=== PATIENT | female | born 1965 | race Caucasian/White ===

== ENCOUNTER 2016-12-10 11:25 | Observation (INO) | payer BC ==
--- NOTE | ~2016-12-10 | EKG ---
PATIENT: TAWANA MCCORD UNIT #: [id number] Ventricular Rate: 57 BPM Atrial Rate: 57 BPM P-R Interval: 164 ms QRS Duration: 80 ms Q-T Interval: 450 ms QTC Calculation(Bezet): 438 ms P Olancha: 30 degrees Calculated R Olancha: -5 degrees Calculated T Olancha: 31 degrees Diagnosis Line: Sinus bradycardia Diagnosis Line: Possible Inferior infarct (cited on or before Diagnosis Line: 10-DEC-2016) Diagnosis Line: Cannot rule out Anterior infarct (cited on or Diagnosis Line: before 10-DEC-2016) Diagnosis Line: Abnormal ECG Diagnosis Line: When compared with ECG of 17-MAR-2015 16:33, Diagnosis Line: No significant change was found Diagnosis Line: Confirmed by SARABJIT MADRIGAL MD ([id number]) on Diagnosis Line: 12/12/2016 3:16:22 PM INTERPRETING MD: KAITLIN ESPINOZA
--- NOTE | ~2016-12-10 | TH ---
Unit #: [id number] #: [id number] Patient: TAWANA MCCORD [id number] [facility]. [place] [address] [id number] MR#: [id number] NAME: TAWANA MCCORD. : 1965 SEX: F STUDY DATE/TIME: UNIT: C5B ROOM: 558 STUDY DESCRIPTION: Nuclear Study Attending Physician: Regine Delacruz M.D. Primary Care Physician: Carson Valdez A.P.R.N. CARDIOLOGY REPORT EXAM Walking Lexiscan Cardiolite Stress Test - Nuclear Portion PROCEDURE Using technetium 99m labeled Cardiolite, rest and stress SPECT images were obtained. Multiple SPECT images were obtained in various views including horizontal and vertical long axis and short axis views of the left ventricle. Images were obtained by gated SPECT method. The patient was administered 11.58 mCi of Cardiolite at rest. The patient was administered 35.9 mCi of Cardiolite after Lexiscan infusion was completed. On the stress images, there is normal perfusion noted. The rest images show normal perfusion. Comparing rest and stress images, there is no stress-induced ischemia noted. The left ventricular ejection fraction is calculated to be 63%. There is no focal wall motion abnormality seen. CONCLUSION 1. No obvious stress-induced ischemia noted. 2. The left ventricular ejection fraction is calculated to be 63%. 3. There is no focal wall motion abnormality seen. 4. Normal Lexiscan Cardiolite stress test. 5. Technically limited study due to patient's body habitus. Clinical correlation is requested. Dictated by... Kristopher Thomason TD: 12/11/2016 13:11 JOB #: [id number] Unit #: [id number] #: [id number] Patient: TAWANA MCCORD CARDIOLOGY REPORT Page 1 of 1 X Regine Delacruz MD <ELECTRONICALLY SIGNED> 02/03/17 6997 CARDIOLOGY REPORT
--- NOTE | ~2016-12-10 | DS ---
Unit #: [id number] #: [id number] Patient: TAWANA DANIELSON [id number] [place] [id number] [facility]. [place], [place] [address] [id number] MR#: [id number] NAME: TAWANA DANIELSON. ROOM: 558 Age: 51 Sex: F Admission Date: 12/10/2016 : 1965 Discharge Date: 12/11/2016 Attending Physician: Regine Delacruz M.D. Primary Care Physician: Carson Valdez A.P.R.N. DISCHARGE SUMMARY SHORT STAY SUMMARY HISTORY OF PRESENT ILLNESS This is a 51-year-old white female who has had a history of having angioplasty and stent placed back originally in 2010 in the mid LAD and later in 2012 he had a non-STEMI and required another stent in the proximal LAD that was performed by Dr. Cevallos here at [facility]. Since that time, patient only had one followup with Dr. Cevallos and has not seen a ring striker since that time. She has a history of hypertension, diabetes mellitus, with neuropathy, hyperlipidemia, COPD, asthma, obstructive sleep apnea. Her last echo four years ago showed LVEF of 70%. No valvular disease. The patient came to the emergency room today with complaints of chest pain along with some left arm numbness and tightness that started a couple of days prior to coming to the ER. 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 She sat down for about 15 minutes and symptoms resolved. She continued to work and did fine the rest of that evening. The day before admission, she had another spell. This was at home after she had been doing some housecleaning and vacuuming. This time, she had some pain in her left anterior chest wall and also somewhat in the left arm that felt like her whole arm was numb. She then had developed some numbness and tingling in the right hand. She continued to feel lightheaded and dizzy. She did have a blood pressure cuff and took her blood pressure. It was 137/78. She occasionally feels her heart fluttering. She has been told in the past that she has a slow heart rate and one time she thought she may need a pacemaker but it was not necessary a few years back. She denies any increased shortness of breath. Denies any recent cough, fever or chills. Denies syncope with these episodes. She has not had any paroxysmal nocturnal dyspnea or orthopnea. In the emergency room, the patient's blood pressure was 189/73. Her heart rate is 60, respirations 16, temperature 97.7, O2 sat was 98% on room air. Her EKG showed sinus bradycardia with ventricular rate 57 beats/minute, T wave inversion in inferior leads and possible Q waves in inferior leads. The patient was given some aspirin 325 along with Zofran and morphine and sublingual Nitrostat before the morphine. The patient was admitted for further evaluation and management. The patient's cardiac enzymes remain negative. Her EKG did not show anything acute. The patient was sleeping she did have a slow bradycardia with a rate as low as 35 beats/minute. The patient was asymptomatic. The patient does have sleep apnea and she refused to use a CPAP here at the Unit #: [id number] #: [id number] Patient: [facility], only wanted to wear oxygen with sleep. Since that slow heart rate, she has remained in sinus bradycardia but rates are mostly in the 50s and low 60s. The patient is not on any beta richard which most likely was secondary because of her full heart rate. The patient was ordered for a walking Lexiscan if her heart rate would increase. A walking Lexiscan Cardiolite stress test was performed. Her heart rate got as high as the 80s. EKG did not show anything acute. Her blood pressure remained stable. Her nuclear images revealed no ischemia. Ejection fraction was 63%, no focal wall motion abnormality. The plan is for the patient to be discharged home and to have an event monitor placed. Our office will call the patient in the next couple of days to arrange for the event monitor. She also requested to see Dr. Delacruz in the office and that will be scheduled for a few weeks. Discussed with the patient to try to decrease the dose of Neurontin to see if that helps her symptoms. The patient agreed that she would try. The patient will be discharged home today in stable condition. No further complaints of chest pain, numbness or tingling or palpitations. PAST MEDICAL HISTORY 1. Hypertension. 2. Hyperlipidemia. 3. Diabetes mellitus type 2, insulin dependent. 4. Coronary artery disease. In 2010 had a PCI and stent to the mid LAD. 04/2013 - status post PCI and stent to the proximal LAD with 50% in-stent stenosis. Had a non-STEMI, follows Dr. Cevallos. 5. COPD/asthma. 6. Obstructive sleep apnea. 7. Gastroesophageal reflux disease. 8. History of TIA. 9. Obesity, 227 pounds. BMI 37. 10. 04/2013 2D echo. LVEF 70%. No valvular disease. 11. Nonsmoker. PAST SURGICAL HISTORY 1. Status post PCI and stent in 2010 in the mid LAD and later 2012 to the proximal LAD. 2. Cholecystectomy. 3. Cyst removed. 4. Tubal ligation. HOME MEDICATIONS 1. Lantus 30 units subcu twice daily. 2. NovoLog 70/30 25 units subcu twice daily. 3. Glucophage 500 mg p.o. twice daily. 4. Lisinopril 20 mg p.o. daily. 5. Aspirin 81 mg p.o. daily. 6. Neurontin 800 mg p.o. three times daily. 7. Plavix 75 mg p.o. daily. 8. Doxepin 50 mg p.o. at bedtime. 9. Lipitor 40 mg p.o. at bedtime. ALLERGIES Promethazine. SOCIAL HISTORY The patient lives with her spouse. 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 She works a lot of hours. She has been a lifelong nonsmoker, no alcohol or illicit drug abuse. FAMILY HISTORY No known cad in immediate family members. REVIEW OF SYSTEMS CONSTITUTIONAL: Denies fever or chills. No recent weight gain or weight loss. HEENT: Denies headache. Complains of some slight dizziness. No visual or hearing changes. No lymphadenopathy or thyromegaly, no difficulty swallowing. NECK: Trachea midline. CARDIAC: Chest pain present. Occasional palpitation present. Denies increased lower extremity edema. PULMONARY: Denies shortness of breath, denies paroxysmal nocturnal dyspnea or orthopnea. GI: Denies nausea, vomiting or diarrhea or abdominal pain. NEUROLOGICAL: No focal weakness. PHYSICAL EXAMINATION GENERAL: On exam, Ms. Danielson is a 51-year-old white female in no acute respiratory distress. She is awake, alert, oriented. VITAL SIGNS: Blood pressure is 145/75, heart rate is 56, respiratory rate 18, temperature 97.6. O2 sats 93% on room air. NECK: Trachea midline. No thyromegaly or lymphadenopathy. Normal carotid upstrokes. No jugular venous distention. HEART: S1, S2. Regular rate and rhythm. No clicks, murmurs or rubs. LUNGS: Slightly diminished, otherwise clear. ABDOMEN: Obese, soft, nontender. EXTREMITIES: Pedal pulses are palpable. No pedal edema. DIAGNOSTIC STUDIES LABORATORY: Glucose is 173, BUN 10, creatinine 0.7, eGFR 98.9. Sodium 138, potassium 3.9, chloride 105, CO2 28, calcium 8.9, total protein 6.8, albumin 3.6, bili total 0.7, AST 15, ALT 14, alkaline phos. 90. Fasting lipid profile - cholesterol is 206, triglycerides 300, LDL is 101, HDL is 45, TSH is 1.65. WBC is 8.1, hemoglobin 13.0, hematocrit 40.8, platelets 191. Initial cardiac enzymes - CK MB is 1.1 with troponin less than 0.05. CK MB is 1.0 with troponin less than 0.05. CK total is 38 with troponin of less than 0.03. WBC is 8.1, hemoglobin 13.0, hematocrit 40.8, platelets 191. INR is 1.0. IMAGING: Chest x-ray shows stable cardiomegaly, no active disease. CARDIOVASCULAR: EKG shows sinus bradycardia, heart rate 55 beats/minute. Some nonspecific ST-T wave abnormalities in inferior leads. Poor R wave progression and Q wave in lead III. Low voltage in AVF. PLAN/INSTRUCTIONS The patient will be discharged home and instructed to follow up with Dr. Delacruz. Our office will call the patient in the next couple of days with that appointment time. They will also instruct the patient on information Unit #: [id number] #: [id number] Patient: TAWANA DANIELSON about obtaining an event monitor to evaluate for any arrhythmias that would be causing her symptoms. I explained this to patient and she verbalizes understanding. The patient does take Neurontin 800 mg p.o. three times daily. Discussed with patient if maybe she can decrease down that dose which can maybe help her symptoms. The patient said she would try. Patient to continue on her aspirin and Plavix. She is also on an ALVA inhibitor. She is not on a beta richard because of her sinus bradycardia. I instructed the patient to follow up with her PCP in one to two weeks. Further recommendations pending per Dr. Delacruz. Dictated by... Иван Okeefe/huang TD: 12/11/2016 15:40 JOB #: [id number] DISCHARGE SUMMARY Page 1 of 1 X Torrie Sifuentes APRN X DISCHARGE SUMMARY
--- NOTE | ~2016-12-10 | CR72 ---
[facility] A Service of [facility] RADIOLOGY TEXT RESULTS PATIENT: TAWANA MCCORD LOCATION: CEDOF : [birth year] UNIT #: [id number] AGE: [address]: Regine Delacruz MD SEX: F ORDER DR: [id number] [facility] [place] [address] [facility]. [place], [place] [address] [id number] MR#: [id number] Acc #: [id number] NAME: TAWANA MCCORD. : 1965 SEX: F STUDY DATE/TIME: 12/10/2016 13:13 UNIT: [facility] ROOM: STUDY DESCRIPTION: CR Chest Single View Portable Attending Physician: Liya Farrar P.A.-C. Ordering Physician: Liya Farrar P.A.-C. Primary Care Physician: Carson Valdez A.P.R.N. MEDICAL IMAGING REPORT This report is preliminary unless electronic signature is present EXAM Portable chest 12/10/2016 INDICATION Chest pain with left arm numbness, shortness of air, nausea and vomiting. Symptoms started 2 days ago. FINDINGS AP portable chest compared with 05/09/2013. Cardiomegaly is stable. Lungs are clear. No pneumothorax is seen. IMPRESSION Stable cardiomegaly. No active disease. Dictated by... Benitez Thompson Jr., M.D. THIS IS AN ELECTRONICALLY VERIFIED REPORT Benitez Thompson Jr., M.D. at 12/10/2016 8:46 PM RAMIN/rustam TD: 12/10/2016 13:49 JOB #: [id number] MEDICAL IMAGING REPORT Page 1 of 1 COPY
--- NOTE | ~2016-12-10 | ST ---
Unit #: [id number] #: [id number] Patient: TAWANA MCCORD [id number] [place] [id number] [place], [place] [address] [id number] I MR#: [id number] NAME: TAWANA MCCORD. : 1965 SEX: F STUDY DATE/TIME: 12/11/2016 UNIT: C5B ROOM: 558 STUDY DESCRIPTION: Walking lexiscan stress test Attending Physician: Regine Delacruz M.D. Primary Care Physician: Carson Valdez A.P.R.N. CARDIOLOGY REPORT EXAM Walking Lexiscan Cardiolite stress test. DESCRIPTION Baseline EKG: Sinus bradycardia. Heart rate 55 BPM, some nonspecific ST-T wave abnormalities in inferior leads, poor R wave progression and possible Q wave in V1 only. Slightly prolonged QT. Lexiscan was done in 6 minutes utilizing Lauri protocol, achieving a maximum heart rate response of 97 BPM with a maximum blood pressure response of 190/91 mmHg. EKG during the test continued to show some nonspecific ST-T wave abnormalities in the inferior leads, especially lead 3 showed a T wave inversion, otherwise unremarkable. Patient had had no complaints of chest pain, palpitations. Did complain of some slight dizziness and fatigueness, which resolved during recovery phase. Cardiolite was injected after Lexiscan within the first minute of the test. Radionuclide test pending. Please correlate with nuclear images. Dictated by... Torrie Sifuentes A.P.R.N. for Kristopher Thomason/luis TD: 12/11/2016 09:52 JOB #: [id number] CARDIOLOGY REPORT Page 1 of 1 X Torrie Sifuentes APRN CARDIOLOGY REPORT
[~2016-12-10 11:25] MED LIST: ACETAMINOPHEN PO; ACULAR LS5 ML OP; ADVAIR 2501 DISK W/D; ADVAIR 500-501 EACH; ADVAIR 500-501 EACH IH; ADVAIR 5001 DISK W/D PO; ALBUTEROL 0.5ML; ALBUTEROL 0.5ML INH; ALBUTEROL SULFATE NEB; ALBUTEROL0.83 MG/ML IH; ALBUTEROL17 GM; ALBUTEROL17 GM INH; ALBUTEROL17 GM NEB; AMOXICILLIN500 M1 PO; ASPIRIN ENTERI325 M1 PO; ASPIRIN PO; ASPIRIN325 M1 PO; ASPIRIN81 M1 PO; ASPIRIN81 MG PO; ASPIRINEC; ASPIRINEC PO; AUGMENTIN; AURALGAN EAR DR14 ML OT; BENADRYL PO; CIPRO PO; COMBIVENT INH14.7 GM INH; COMBIVENT U/D3 ML INH; COREG6.25 MG PO; DARVOCET-N 1001 TAB PO; DIABETES MED; DOXYCYCLINE PO; EFFIENT10 MG; EFFIENT10 MG PO; EFFIENT5 MG PO; FAMOTIDINE PO; FLAGYL PO; FLEXERIL10 MG PO; FLONASE16 GM; FLOXIN OTIC5 M1 OP; GABAPENTIN600 MG PO; GLUCOPHAGE500 MG PO; HEART PILL; HUMIBID L.1 TAB.SR . PO; IBUPROFEN PO; IBUPROFEN800 MG PO; LEVAQUIN PO; LEVAQUIN750 MG PO; LEVEMIR100 U/ML SQ; LEVEMIR100 UNITS/; LEVEMIR100 UNITS/ SUBQ; LIDODERM30 EA TOP; LIPITOR; LISINOPRIL PO; LISINOPRIL10 MG PO; LISINOPRIL20 MG PO; LORTAB 5/500 TA1 TA2 PO; LORTAB 7.5-3251 EACH PO; LYRICA75 MG PO; MEDROL PO; MEDROL4 MG/DOSE- PO; MIDRIN CAPSULE1 CAP PO; MYCOSTATIN POWD30 GM EXT; NEURONTIN800 MG PO; NEXIUM PO; NITROGLYGERIN0.4 MG; NITROSTAT0.4 MG SL; NORCO1 TAB 10/3 PO; NORVASC PO; NOVOLOG100 U/M1 SQ; NOVOLOG100 U/M2 SUBQ; NOVOLOG100 UNITS/ INJ; NYSTATIN1 EACH MC; PERCOCET7.5; PHENERGAN25 MG PO; PLAVIX PO; PREDNISONE PO; PREDNISONE1 MG PO; PREDNISONE10 MG; PROTONIX PO; PULMICORT NEB; ROBAXIN 750750 M1 PO; ROBAXIN500 MG PO; SINGULAIR PO; SPIRIVA18 MCG INH; TYLENOL #3 PO; ULTRAM PO; VICODIN 5/500 T1 TAB; VOLTAREN50 MG PO; VOLTAREN75 MG PO; ZOCOR20 MG; ZOCOR20 MG PO; ZOFRAN ODT4 MG PO; ZOFRAN PO
[2016-12-10 13:31] LABS: BASOPHIL# 0.1 X10e3 (0-0.3); BASOPHIL% 0.7 % (0-2.5); EOSINOPHIL# 0.2 X10e3 (0-0.7); EOSINOPHIL% 2.6 % (0.0-7.0); HEMATOCRIT 40.8 % (35.0-45.0); LYMPHOCYTE# 2.5 X10e3 (1.0-3.5); LYMPHOCYTE% 30.2 % (17.0-45.0); MEAN CELL VOLUME 82.9 FL (83-96); MEAN CORPUSCULAR HEMOGLOBIN 26.5 PG (28-34); MEAN PLATELET VOLUME 10.2 FL (6.5-11.5); MONOCYTE# 0.6 X10e3 (0-1.0); MONOCYTE% 7.1 % (3.0-12.0); NEUTROPHIL# 4.8 X10e3 (1.5-7.1); NEUTROPHIL% 59.4 % (40-75); PLATELET COUNT 191 X10e3 (140-420); RED BLOOD COUNT 4.92 X10e (3.90-5.30); WHITE BLOOD COUNT 8.1 X10e3 (4.0-10.5)
[2016-12-10 13:35] LABS: DIFF IND NO
[2016-12-10 13:45] LABS: PARTIAL THROMBOPLASTIN TIME 24.4 SECONDS (23.5-31.3); PROTHROMBIN TIME (PATIENT) 10.1 SECONDS (9.6-11.5)
[2016-12-10 13:55] LABS: POC - TROPONIN <0.05 ng/mL (<=0.05)
[2016-12-10 13:56] LABS: ALBUMIN SERUM 3.6 g/dL (3.5-5.0); BILIRUBIN, DIRECT 0.1 mg/dL (0.0-0.2); BILIRUBIN,INDIRECT 0.6 mg/dL (0.0-0.9); BILIRUBIN,TOTAL 0.7 mg/dL (0.2-2.0); BUN/CREATININE RATIO 14.28; CALCIUM SERUM 8.9 mg/dL (8.4-10.2); CREATININE SERUM 0.7 mg/dL (0.6-1.4); GLOM FILT RATE Estimated 98.9 mL/min (>60); POTASSIUM 3.9 mmol/L (3.5-5.1); PROTEIN TOTAL SERUM 6.8 g/dL (6.0-8.3)
[2016-12-10 20:12] LABS: POC - CKMB 1.1 ng/mL (0.0-7.9); POC - TROPONIN <0.05 ng/mL (<=0.05)
[2016-12-10] MEDS ORDERED: LANTUS SOL100 UNIT/1 SUBQ (22:57)
[2016-12-10] MEDS ORDERED: METFORMIN PO (22:58)
[2016-12-10] MEDS ORDERED: NOVOLOG7030 SUBQ (22:58)
[2016-12-10] MEDS ORDERED: LISINOPRIL20 MG PO (23:02)
[2016-12-10] MEDS ORDERED: ASPIRIN81 MG PO (23:02)
[2016-12-10] MEDS ORDERED: NEURONTIN800 MG PO (23:02)
[2016-12-10] MEDS ORDERED: CLOPIDOGREL75 MG PO (23:03)
[2016-12-10] MEDS ORDERED: DOXEPIN HCL50 M1 PO (23:04)
[2016-12-10] MEDS ORDERED: LIPITOR PO (23:04)
[2016-12-10 23:57] LABS: CK TOTAL 48 IU/L (26-140)
[2016-12-11 03:13] LABS: CK TOTAL 38 IU/L (26-140)
[2016-12-11 03:20] LABS: CHOLESTEROL 206 mg/dL (0-200); HDL CHOLESTEROL 45 mg/dL (35-95); LDL CHOLESTEROL 101 mg/dL (-130); LDL/HDL RATIO 2 RATIO (0-4); TRIGLYCERIDES 300 mg/dL (10-160)
== END 2016-12-11 16:45 | disposition home or self-care (01) | DRG 313 ==
LOC: CED 11:25 → CEDOF 14:27 → CED 14:33 → CEDOF 14:33 → C5B 22:05 → CEDOF 22:05 → C5B 12-11 16:45
PROVIDERS: Internal Medicine Cardiovascular Disease; Physician Assistant
DX: R07.89 Other chest pain (principal); R00.1 Bradycardia, unspecified; I25.10 Atherosclerotic heart disease of native coronary artery without angina pectoris; Z95.5 Presence of coronary angioplasty implant and graft; I25.2 Old myocardial infarction; I10 Essential (primary) hypertension; E78.5 Hyperlipidemia, unspecified; E11.9 Type 2 diabetes mellitus without complications; Z79.4 Long term (current) use of insulin; J44.9 Chronic obstructive pulmonary disease, unspecified; G47.33 Obstructive sleep apnea (adult) (pediatric); K21.9 Gastro-esophageal reflux disease without esophagitis; Z86.73 Personal history of transient ischemic attack (TIA), and cerebral infarction without residual deficits; E66.9 Obesity, unspecified; Z68.37 Body mass index [BMI] 37.0-37.9, adult; Z79.84 Long term (current) use of oral hypoglycemic drugs; Z79.82 Long term (current) use of aspirin; Z79.02 Long term (current) use of antithrombotics/antiplatelets
CPT/HCPCS: 36415; 71010; 78452; 80048; 80061; 80076; 82550; 82553; 82947; 84443; 84484; 85025; 85610; 85730; 93005; 93017; 96372; 96374; 96375; 99285; A9500; G0378; J1650; J1815; J2270; J2405; J2785

== ENCOUNTER 2016-12-13 10:42 | Emergency (ER) | payer BC ==
--- NOTE | ~2016-12-13 | CT2 ---
[facility] A Service of [facility] RADIOLOGY TEXT RESULTS PATIENT: TAWANA MCCORD LOCATION: SED : 61 UNIT #: [id number] AGE: [address]: Michelle Meehan MD SEX: F ORDER DR: [id number] [address] [address] [id number] E MR#: [id number] Acc #: [id number] NAME: TAWANA MCCORD. : 1965 SEX: F STUDY DATE/TIME: 12/13/2016 13:20 UNIT: SED ROOM: STUDY DESCRIPTION: CT Abd and Pelv W Cont Attending Physician: Michelle Meehan M.D. Ordering Physician: Zach Hernandez M.D. Primary Care Physician: Carson Valdez A.P.R.N. MEDICAL IMAGING REPORT This report is preliminary unless electronic signature is present. EXAM CT abdomen and pelvis with contrast HISTORY 51-year-old female with dark emesis, fever, nausea, vomiting, diarrhea, epigastric pain since yesterday. History of COPD, diabetes. COMPARISON CT abdomen and pelvis, 01/03/2015 FINDINGS Axial images performed through the abdomen and pelvis following IV contrast. Multiplanar reconstructed images reviewed at a workstation. This CT exam was performed with one or more of the following radiation dose reduction techniques: automatic exposure control, adjustment of mA and/or kV according to patient size, and iterative reconstruction. Mild fatty infiltration of the liver. Spleen mildly enlarged but unchanged from prior studies. Gallbladder surgically absent. Pancreas, kidneys and adrenal glands appear normal. No free air or free fluid. Stomach demonstrates some positive opacity which may represent medicinal preparation or small amount of contrast. Small bowel unremarkable. Moderate amount of fluid within the colon but no evidence of bowel wall thickening. Findings could be seen with enterocolitis. Retroperitoneum unremarkable except for a few shotty retroperitoneal lymph nodes. PELVIS: Uterus demonstrates a fundal mass measuring up to 6.4 cm. This is compatible with a uterine fibroid. This shows some dense calcifications. Probable second fibroid within the posterior myometrium representing a mural fibroid. No adnexal masses identified. Tubal ligation clips noted. Osseous structures unremarkable. Generalized STS. [facility] A Service of [facility] RADIOLOGY TEXT RESULTS PATIENT: TAWANA MCCORD LOCATION: SED : 61 UNIT #: [id number] AGE: [address]: Michelle Meehan MD SEX: F ORDER DR: obesity. Apparent purse noted along the right anterior abdomen does create some artifact. IMPRESSION 1. Increased colonic fluid with a few colonic air-fluid levels nonspecific but could be seen with enterocolitis. No focal inflammatory process identified. 2. Fatty liver with mild splenomegaly. 3. At least two sizeable uterine mass lesions compatible with fibroids. The largest measuring up to 6.4 cm representing an exophytic fundal leiomyoma. Dictated by... Armando Guzman M.D. THIS IS AN ELECTRONICALLY VERIFIED REPORT Armando Guzman M.D. at 12/15/2016 5:11 PM EMILIANO/dafne TD: 12/13/2016 17:59 JOB #: [id number] MEDICAL IMAGING REPORT Page 1 of 1
[~2016-12-13 10:42] MED LIST changes: +CLOPIDOGREL75 MG PO; +DOXEPIN HCL50 M1 PO; +LANTUS SOL100 UNIT/1 SUBQ; +LIPITOR PO; +METFORMIN PO; +NOVOLOG7030 SUBQ
[2016-12-13 11:59] LABS: URINE SOURCE CLEAN CATCH
[2016-12-13 12:00] LABS: BASOPHIL# 0.1 X10e3 (0-0.3); BASOPHIL% 0.4 % (0-2.5); EOSINOPHIL# 0.1 X10e3 (0-0.7); EOSINOPHIL% 0.7 % (0.0-7.0); HEMATOCRIT 42.8 % (35.0-45.0); HEMOGLOBIN 13.9 gm/dL (12.0-16.0); LYMPHOCYTE# 1.2 X10e3 (1.0-3.5); LYMPHOCYTE% 10.5 % (17.0-45.0); MEAN CELL VOLUME 82.5 FL (83-96); MEAN CORPUSCULAR HEMOGLOBIN 26.9 PG (28-34); MEAN CORPUSCULAR HGB CONC 32.6 g/dL (30-36); MEAN PLATELET VOLUME 10.3 FL (6.5-11.5); MONOCYTE# 0.9 X10e3 (0-1.0); NEUTROPHIL# 9.5 X10e3 (1.5-7.1); NEUTROPHIL% 80.4 % (40-75); PLATELET COUNT 175 X10e3 (140-420); RED BLOOD COUNT 5.18 X10e (3.90-5.30); RED CELL DISTRIBUTION WIDTH 14.7 % (11.0-15.5); WHITE BLOOD COUNT 11.8 X10e3 (4.0-10.5)
[2016-12-13 12:01] LABS: URINE APPEARANCE CLOUDY; URINE BLOOD NEG (NEG); URINE COLOR YELLOW; URINE GLUCOSE NEG (NORM); URINE KETONE NEG (NEG); URINE LEUKOCYTE ESTERASE NEG (NEG); URINE NITRATE NEG (NEG); URINE PROTEIN 1+ (NEG); URINE SPECIFIC GRAVITY >=1.030 (1.003-1.035); URINE UROBILINOGEN 0.2 MG/DL (NORM)
[2016-12-13 12:01] LABS: DIFF IND NO
[2016-12-13 12:08] LABS: MICRO INDICATED? YES; URINE BILIRUBIN NEG (NEG)
[2016-12-13 12:23] LABS: ALBUMIN SERUM 3.4 g/dL (3.5-5.0); BILIRUBIN, DIRECT 0.2 mg/dL (0.0-0.2); BILIRUBIN,TOTAL 1.2 mg/dL (0.2-2.0); BUN/CREATININE RATIO 19.09; CALCIUM SERUM 8.1 mg/dL (8.4-10.2); CREATININE SERUM 1.1 mg/dL (0.6-1.4); GLOM FILT RATE Estimated 57.3 mL/min (>60); PROTEIN TOTAL SERUM 6.9 g/dL (6.0-8.3)
[2016-12-13 12:24] LABS: CULTURE INDICATED? YES; URINE BACTERIA 3+ (NEG); URINE RBC 0-2 /[HPF] (0-2); URINE SQUAMOUS EPITHELIAL CELL MANY /[HPF]
[2016-12-13 12:38] LABS: POTASSIUM 3.1 mmol/L (3.5-5.1)
== END 2016-12-13 17:01 | disposition home or self-care (01) ==
LOC: SED 10:42
PROVIDERS: Emergency Medicine
DX: E87.6 Hypokalemia (principal); K52.9 Noninfective gastroenteritis and colitis, unspecified; E11.65 Type 2 diabetes mellitus with hyperglycemia; J44.9 Chronic obstructive pulmonary disease, unspecified; M79.7 Fibromyalgia; Z90.49 Acquired absence of other specified parts of digestive tract; Z98.51 Tubal ligation status; Z98.890 Other specified postprocedural states; Z79.4 Long term (current) use of insulin; Z79.82 Long term (current) use of aspirin
CPT/HCPCS: 36415; 74177; 80048; 80076; 81003; 83690; 85025; 87086; 96361; 96374; 96375; 99284; J2270; J2405; Q9967